=== PATIENT | male | born 1945 | race Caucasian/White ===

== ENCOUNTER 2018-02-06 14:01 | Inpatient (IN) | payer OTHER ==
[2018-02-06] MEDS ORDERED: dilTIAZem HCL 50 MG/10 ML - 10 ML VIAL ONE (14:13)
[2018-02-06] MEDS ORDERED: dilTIAZem HCL 30 MG TABLET (FP) ONE (14:18)
--- NOTE | 2018-02-06 14:23 | PDOC ---
History of Present Illness - General Chief Complaint: Chest Pain Stated Complaint: CHEST PAIN Time Seen by Provider: 02/06/18 14:23 - History of Present Illness Initial Comments: 02/06/18 14:36 The patient is a 72 year old male with a history of HTN, DM, who presents for evaluation of chest pain. The patient states that he began experiencing a sensation of a racing heart with associated chest pain with radiation to his left arm earlier this morning. The symptoms persisted prompting his presentation to the ED for further evaluation. He also reports some associated SOB. He denies a cardiac history and otherwise denies fevers, chills, nausea, vomiting, abdominal pain, or changes with urination or bowel movements. Past History - Past Medical History Allergies/Adverse Reactions: Allergies Allergy/AdvReac Type Severity Reaction Status Date / Time No Known Allergies Allergy Verified 02/06/18 14:08 Home Medications: Ambulatory Orders Enalapril Maleate 20 mg PO DAILY #0 01/07/15 Fenofibrate 160 mg PO DAILY #0 01/07/15 Glimepiride 2 mg PO BIDAC #0 01/07/15 Metformin HCl 500 mg PO BIDAC #0 01/07/15 Simvastatin 10 mg PO DAILY #0 tablet 01/07/15 Aspirin 81 mg PO DAILY 02/06/18 B12/Iodin/Mag/Zinc/Stacey/[id number] [Adrenoid Capsule] 1 each PO Q48H 02/06/18 Cholecalciferol (Vitamin D3) [D3-50] 50 mcg PO DAILY 02/06/18 Multivit-Min/FA/Lycopen/Lutein [Centrum Silver Tablet] 1 each PO DAILY 02/06/18 Cancer: Yes (Colon tumors) COPD: No Diabetes: Yes GI Disorders: Yes (to have surg.on colon) HTN: Yes - Suicide/Smoking/Psychosocial Hx Smoking History: Former smoker Have you smoked in the past 12 months: Yes Cigars Per Day: 1 Information on smoking cessation initiated: No 'Breaking Loose' booklet given: 01/01/15 Hx Alcohol Use: No Drug/Substance Use Hx: No Substance Use Type: None Hx Substance Use Treatment: No Review of Systems - Review of Systems Comments:: 02/06/18 14:43 Constitutional: No fevers, chills, fatigue, malaise HEENT: No Rhinorrhea, nasal congestion, visual changes Cardiovascular: Chest pain. No syncope, palpitations, lightheadedness Respiratory: SOB. No Cough, Hemoptysis, Gastrointestinal: No Abdominal pain, Nausea, Vomiting, Constipation, Diarrhea, Melena Genitourinary: No Dysuria, Frequency, Urgency, Hesitancy, Hematuria, Flank pain Musculoskeletal: No Myalgia, arthralgia Skin: No rashes, itching, bruising, pallor Neurologic: No Headache, Dizziness, Numbness, Weakness, or Tingling Psychiatric: No Hallucinations. No SI or HI *Physical Exam - Vital Signs Last Vital Signs Temp Pulse Resp BP Pulse Ox 224 H 20 0/0 L 02/06/18 14:05 02/06/18 14:05 02/06/18 14:05 - Physical Exam Comments: 02/06/18 15:05 General Appearance: Nourished. Diaphoretic. No Apparent Distress HEENT: No Pharyngeal Erythema, Tonsillar Exudate, Tonsillar Erythema Neck: No Cervical Lymphadenopathy Respiratory/Chest: Lungs Clear, Normal Breath Sounds. No Crackles, Rales, Rhonchi, Wheezing Cardiovascular: Regular Rhythm, Tachycardic. No Murmur, Gallops, Rubs Gastrointestinal/Abdominal: Normal Bowel Sounds, Soft. No Guarding, Rebound, Tenderness Musculoskeletal: No CVA Tenderness Extremity: Normal Capillary Refill Integumentary: Normal Color, Dry, Warm Neurologic: Fully Oriented, Alert, Normal Mood/Affect, Normal Response, Heart Score/ECG Review #1 ECG reviewed & interpreted by me at: 15:08 General ECG Interpretation: Normal Intervals, No acute ischemic changes 02/06/18 15:08 Narrow Complex Tachycardia Regular Rhythm Right Bundle Branch Block HR 224 #2 ECG reviewed & interpreted by me at: 15:20 General ECG Interpretation: Sinus Rhythm, Normal Intervals, No acute ischemic changes 02/06/18 15:[address] and T wave findings HR of 114 ED Treatment Course - LABORATORY CBC & Chemistry Diagram: 02/06/18 14:26 02/06/18 14:26 Medical Decision Making - Critical Care Time Total Critical Care Time (minutes): 45 Critical Care Statement: The care of this patient involved high complexity decision making to prevent further life threatening deterioration of the patient 's condition and/or to evaluate & treat vital organ system(s) failure or risk of failure. - Medical Decision Making 02/06/18 15:12 The patient is a 72 year old male with a history of HTN, DM, who presents for evaluation of chest pain. The patient's HR was 224 on arrival to the ED with a stable blood pressure. He received 20mg of iv diltiazem and 30 mg of PO Diltiazem with his HR improving to 110 with improvement in his symptoms. We discussed the case with cardiology who recommended continuing diltiazem and they will evaluate the patient. We will obtain a cbc, cmp, troponin, tsh, ua, chest plain film ekg to evaluate further. The patient will require admission for further management. 02/06/18 15:31 CBC demonstrates an elevated wbc to 12. CMP demonstrates a creatinine of 2.1 consistent with an LUCERO. Troponin is elevated to 0.10. Chest plain film is unremarkable. We discussed the case with Dr. Michelle who accepted the patient for admission. We will continue to hydrate the patient and monitor and reassess while here in the ED. *DC/Admit/Observation/Transfer Diagnosis at time of Disposition: Tachycardia, LUCERO (acute kidney injury) Chest pain Qualifiers: Chest pain type: unspecified Qualified Code(s): R07.9 - Chest pain, unspecified - Discharge Dispostion Condition at time of disposition: Stable Decision to Admit order: Yes - Referrals - Patient Instructions - Post Discharge Activity
[2018-02-06] MEDS ORDERED: dilTIAZem HCL 50 MG/10 ML - 10 ML VIAL IVPUSH ONE (14:24)
--- NOTE | 2018-02-06 14:28 | PDOC ---
Attending Attestation - Resident Resident Name: Gilberto Owusu - HPI HPI: 02/06/18 15:53 Pt presents to the ED complaining of the acute onset of palpitations and lightheadness that began acutely immediately prior to admission. On admission, patient was tachycardic to 224 and experiencing substernal chest pain radiating down his left arm. Denies shortness of breath. Denies prior similar episodes. Denies fever, bleeding, nausea or vomiting. - Physicial Exam PE: 02/06/18 16:40 Agree with resident exam. Patient is alert and oriented and in no acute distress. Lungs are clear. Abdomen is soft, non tender and non distended. - Critical Care Time Total Critical Care Time: 30 Critical Care Statement: The care of this patient involved high complexity decision making to prevent further life threatening deterioration of the patient 's condition and/or to evaluate & treat vital organ system(s) failure or risk of failure. - Medical Decision Making 02/06/18 16:43 Pt presents to the ED with severe tachycardia. Patient presented with an extremely tachycardic, regular, narrow complex rhythm and concerning symptoms for ischemia. Improved after IV cardizem. Labs show elevated Cr, which may be at patient's baseline. Case discussed with cardiology, who recommends continuing cardizem. Given concern for A fib and patient's signs of ischemia, will start on heparin drip for anticoagulation. Will check dopplers and admit to medicine.
[2018-02-06 14:32] LABS: BASO % 0.6 % (0-2.0); EOS % 0.8 % (0-4.5); HEMATOCRIT 43.8 % (35.4-49); HEMOGLOBIN 13.9 GM/dL (11.7-16.9); LYMPH % 19.2 % (8-40); MCH 28.8 pg (25.7-33.7); MCHC 31.7 g/dl (32.0-35.9); MEAN CELL VOLUME 90.8 fl (80-96); MEAN PLT VOLUME 9.7 fl (7.5-11.1); MONO % 4.3 % (3.8-10.2); NEUT % 75.1 % (42.8-82.8); PLATELET COUNT 167 K/MM3 (134-434); RBC 4.82 M/mm3 (4.00-5.60); RDW 13.6 % (11.9-15.9); WHITE BLOOD COUNT 12.7 K/mm3 (4.0-10.0)
[2018-02-06 14:53] LABS: INR 0.89 (0.83-1.09); PROTHROMBIN TIME (PATIENT) 10.5 SEC (9.7-13.0)
[2018-02-06 14:55] LABS: ACTIVATED PTT 28.8 SECONDS (25.2-36.5)
[2018-02-06 15:08] LABS: ALBUMIN 4.2 g/dl (3.4-5.0); ALK PHOS 41 U/L (45-117); ANION GAP 9 MMOL/L (8-16); BILIRUBIN,TOTAL 0.5 mg/dL (0.2-1); BLOOD UREA NITROGEN 30 mg/dL (7-18); CHLORIDE 105 mmol/L (98-107); CO2 23 mmol/L (21-32); CREATININE 2.1 mg/dL (0.55-1.3); N-TERMINAL BNP 372.8 pg/ml (5-125); POTASSIUM 5.1 mmol/L (3.5-5.1); SGOT/AST 18 U/L (15-37); SGPT/ALT 30 U/L (13-61); SODIUM 136 mmol/L (136-145); TOT PROT 7.7 g/dl (6.4-8.2)
[2018-02-06] MEDS ORDERED: dilTIAZem HCL 30 MG TABLET (FP) PO ONE (15:13)
[2018-02-06] MEDS ORDERED: SODIUM CHLORIDE 1,000 ML IV STA (15:13)
[2018-02-06 15:18] LABS: GLUCOSE,RANDOM 353 mg/dL (74-106)
--- NOTE | 2018-02-06 15:31 | HP ---
Admitting History and Physical - Primary Care Physician PCP: Joseph Raygoza - Admission Chief Complaint: Chest Pain and Palpitation History of Present Illness: 72 yrs old man known case of HTN, T2DM, CKD unknown Base line, Dyslipedemia CA Colon s/p resection in 2014 last colonoscopy 1 yr ago was reported normal, excellent ET denies any PND or orthopnea no excertional chest pain or SOB today present with c/o Left sided chest discomfort that radiates to Left UE low intensity pressure like not associated with perspiration, dizziness , noticed some chest palpitation, denies any fever, chills, cough or SOB , on arrival to Ed patient was in tachycardaia HR around 200 recived Dilitizem Push slowed down to 90-120s Cardiology consulted recommended Diltizem PO at the time of examination, comfortable HR 110-120s , Saturating well denies any chest discomfort History Source: Patient, Family Member - Past Medical History Cardiovascular: Yes: HTN, Hyperlipdemia Renal/: Yes: Renal Failure Heme/Onc: Yes: Other (Ca colon) Endocrine: Yes: Diabetes Mellitus - Past Surgical History Additional Past Surgical History: Colon resection - Smoking History Smoking history: Former smoker Have you smoked in the past 12 months: Yes - Alcohol/Substance Use Hx Alcohol Use: No - Social History History of Recent Travel: No Home Medications - Allergies Allergies/Adverse Reactions: Allergies Allergy/AdvReac Type Severity Reaction Status Date / Time No Known Allergies Allergy Verified 02/06/18 14:08 - Home Medications Home Medications: Ambulatory Orders Enalapril Maleate 20 mg PO DAILY #0 01/07/15 Fenofibrate 160 mg PO DAILY #0 01/07/15 Glimepiride 2 mg PO BIDAC #0 01/07/15 Metformin HCl 500 mg PO BIDAC #0 01/07/15 Simvastatin 10 mg PO DAILY #0 tablet 01/07/15 Aspirin 81 mg PO DAILY 02/06/18 B12/Iodin/Mag/Zinc/Stacey/[id number] [Adrenoid Capsule] 1 each PO Q48H 02/06/18 Cholecalciferol (Vitamin D3) [D3-50] 50 mcg PO DAILY 02/06/18 Multivit-Min/FA/Lycopen/Lutein [Centrum Silver Tablet] 1 each PO DAILY 02/06/18 Family Disease History - Family Disease History Family Disease History: Heart Disease: Father (CAD, CHF), Brother (CAD stent) Review of Systems - Review of Systems Constitutional: denies: Chills, Diaphoresis, Fever, Lethargy, Malaise, Night Sweats Eyes: denies: Blind Spots, Blurred Vision, Double Vision HENT: denies: Difficult Swallowing, Ear Discharge, Ear Pain Neck: denies: Decreased ROM, Lumps, Pain on Movement Cardiovascular: reports: Chest Pain, Palpitations. denies: Edema, Shortness of Breath Respiratory: denies: Cough, Exercise Intolerance, Hemoptysis, Orthopnea Gastrointestinal: denies: Abdominal Pain, Constipation, Diarrhea Genitourinary: denies: Burning, Discharge, Dysuria Musculoskeletal: denies: Back Pain, Crepitus, Decreased ROM Integumentary: denies: Blister, Bruising, Change in Color Neurological: denies: Change in LOC, Change in Speech, Confusion Endocrine: denies: Excessive Sweating, Flushing, Increased Hunger Hematology/Lymphatic: denies: Easily Bruised, Excessive Bleeding, Swollen Glands Pain Intensity: 0 Physical Examination Vital Signs: Vital Signs Temperature Pulse Rate 115 H 02/06/18 14:25 Respiratory Rate 20 02/06/18 14:25 Blood Pressure 115/105 H 02/06/18 14:25 O2 Sat by Pulse Oximetry (%) 98 02/06/18 14:25 Elderly man not in distress HEENT: Mm moist, no anemia NECK: No JVD No Bruit CHEST: CTA B/L CVS: S1S2 Irr No m/g/r ABD: Obese non tender Bs + EXT: Trace edema feet, no calf tenderness, Pulses + 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[employer] DRIVER: AOX3 non focal Labs: CBC, BMP 02/06/18 14:26 02/06/18 14:26 CBC,CMP WBC 12.7 K/mm3 (4.0-10.0) H 02/06/18 14:26 RBC 4.82 M/mm3 (4.00-5.60) 02/06/18 14:26 Hgb 13.9 GM/dL (11.7-16.9) 02/06/18 14:26 Hct 43.8 % (35.4-49) D 02/06/18 14:26 MCV 90.8 fl (80-96) 02/06/18 14:26 MCH 28.8 pg (25.7-33.7) 02/06/18 14:26 MCHC 31.7 g/dl (32.0-35.9) L 02/06/18 14:26 RDW 13.6 % (11.9-15.9) 02/06/18 14:26 Plt Count 167 K/MM3 (134-434) 02/06/18 14:26 MPV 9.7 fl (7.5-11.1) 02/06/18 14:26 Absolute Neuts (auto) 9.6 K/mm3 (1.5-8.0) H 02/06/18 14:26 Neutrophils % 75.1 % (42.8-82.8) 02/06/18 14:26 Lymphocytes % 19.2 % (8-40) 02/06/18 14:26 Monocytes % 4.3 % (3.8-10.2) 02/06/18 14:26 Eosinophils % 0.8 % (0-4.5) D 02/06/18 14:26 Basophils % 0.6 % (0-2.0) 02/06/18 14:26 Nucleated RBC % 0 % (0-0) 02/06/18 14:26 Sodium 136 mmol/L (136-145) 02/06/18 14:26 Potassium 5.1 mmol/L (3.5-5.1) 02/06/18 14:26 Chloride 105 mmol/L (98-107) 02/06/18 14:26 Carbon Dioxide 23 mmol/L (21-32) 02/06/18 14:26 Anion Gap 9 MMOL/L (8-16) 02/06/18 14:26 BUN 30 mg/dL (7-18) H 02/06/18 14:26 Creatinine 2.1 mg/dL (0.55-1.3) H 02/06/18 14:26 Creat Clearance w eGFR 31.11 (>60) 02/06/18 14:26 Random Glucose 353 mg/dL (74-106) H* 02/06/18 14:26 Calcium 10.0 mg/dL (8.5-10.1) 02/06/18 14:26 Total Bilirubin 0.5 mg/dL (0.2-1) 02/06/18 14:26 AST 18 U/L (15-37) 02/06/18 14:26 ALT 30 U/L (13-61) 02/06/18 14:26 Alkaline Phosphatase 41 U/L (45-117) L 02/06/18 14:26 Creatine Kinase 175 IU/L (26-308) 02/06/18 14:26 Troponin I 0.10 ng/ml (0.00-0.05) H 02/06/18 14:26 B-Natriuretic Peptide 372.8 pg/ml (5-125) H 02/06/18 14:26 Total Protein 7.7 g/dl (6.4-8.2) 02/06/18 14:26 Albumin 4.2 g/dl (3.4-5.0) 02/06/18 14:26 TSH 1.70 uIU/ml (0.358-3.74) D 02/06/18 14:26 Imaging - Results Chest X-ray: Report Reviewed (No Infiltrates) EKG: Report Reviewed (Ist: HR 200 narrow complex either SVT or A flutter 2nd HR 114 ? A Fib /MAT) Problem List - Problems (1) Chest pain Assessment/Plan: Most likely due to rapid HR with some indeterminate atrial arrhythmia in, will F /U serial CE, ECHO, telemonitoring, cont statin, serial EKG Cardiology consulted recommended PO Diltizem will F/U Clinical course Code(s): R07.9 - CHEST PAIN, UNSPECIFIED Qualifiers: Chest pain type: unspecified Qualified Code(s): R07.9 - Chest pain, unspecified (2) Tachycardia Assessment/Plan: Intial strip shows narrow complex tachycardia with VR around 200 unlikely sinus, possibility of SVT/A Flutter, 2nd EKG after Diltiazem push HR 114 Afib ? or MAT considering old age and High [id number] score 3 will start AC with Heparin till final determination of rhythm by Cardiology F/U LE Doppler to R/O DVT Code(s): R00.0 - TACHYCARDIA, UNSPECIFIED (3) LUCERO (acute kidney injury) Assessment/Plan: Patient has CKD no recent base line GFR available , will Hold Enarlapril F/U PMD and BMP in am. Code(s): N17.9 - ACUTE KIDNEY FAILURE, UNSPECIFIED (4) HTN (hypertension) Assessment/Plan: Well controlled Hold Enarlapril will optimize accordingly Code(s): I10 - ESSENTIAL (PRIMARY) HYPERTENSION (5) T2DM (type 2 diabetes mellitus) Assessment/Plan: On PO Meds will Hold Correction dose insulin, Diabetic Diet F/U HBA1C, Lipid and TSH Code(s): E11.9 - TYPE 2 DIABETES MELLITUS WITHOUT COMPLICATIONS (6) Dyslipidemia Assessment/Plan: Cont Statin and Fenofibrate Code(s): E78.5 - HYPERLIPIDEMIA, UNSPECIFIED (7) Elevated troponin Assessment/Plan: Mildly elevated trop I moat likely demand ischemia will add ASA 81 mg , now rate controlled cont Diltizem 30 mg q 8 hrly as recommended by cardiology, cont statin, serial trop, EKG and ECHO. Code(s): R74.8 - ABNORMAL LEVELS OF OTHER SERUM ENZYMES
[2018-02-06] MEDS ORDERED: HEPARIN NA (PORCINE) 5,000 UNITS/ML 1ML VIAL IVPUSH PRN (15:59)
[2018-02-06] MEDS ORDERED: HEPARIN INFUSION - 25,000 UNITS/500 ML INFUS.BAG IVPB ONE (16:05)
[2018-02-06] MEDS: HEPARIN - 25,000 UNIT in SODIUM CHLORIDE 495 ML IV SCH (16:14)
[2018-02-06] MEDS ORDERED: GLIMEPIRIDE 2 MG PO SCH (16:30)
[2018-02-06] MEDS: INSULIN SLIDING SCALE (NOVOLOG) 1 VIAL SQ SCH (17:39)
[2018-02-06] MEDS ORDERED: INSULIN (NOVOLOG) ASPART 100 UNITS/ML 10ML VIAL ONE (17:42)
[2018-02-06 20:03] VITALS: BMI 32.7
[2018-02-06 21:04] LABS: MAGNESIUM 1.6 mg/dL (1.8-2.4)
[2018-02-06] MEDS ORDERED: MAGNESIUM SULF 50% (8.12 MEQ/2 ML-1 GM VIAL) IVPB ONE (21:45)
[2018-02-06] MEDS: dilTIAZem HCL 30 MG TABLET (FP) PO SCH (21:50)
[2018-02-06] MEDS ORDERED: ATORVASTATIN CA 10 MG TABLET (FP) PO SCH (22:00)
[2018-02-06 22:46] LABS: URINE APPEARANCE CLEAR; URINE BILIRUBIN NEGATIVE (<2.0 mg/dL); URINE COLOR LTYELLOW; URINE GLUCOSE (UA) 3+ (NEGATIVE); URINE KETONE TRACE (NEGATIVE); URINE LEUK ESTERASE NEGATIVE (NEGATIVE); URINE NITRITE NEGATIVE (NEGATIVE); URINE PROTEIN NEGATIVE (NEGATIVE); URINE UROBILINOGEN NEGATIVE mg/dL (0.2-1.0)
[2018-02-06] MEDS ORDERED: CLOPIDOGREL BISULFATE 300 MG TABLET PO ONE (23:45)
[2018-02-07] MEDS: METOPROLOL TARTRATE 25 MG TABLET (FP) PO SCH ×3 (00:23→21:06)
[2018-02-07] MEDS: dilTIAZem HCL 30 MG TABLET (FP) PO SCH ×3 (05:22→21:06)
[2018-02-07] MEDS: INSULIN SLIDING SCALE (NOVOLOG) 1 VIAL SQ SCH ×3 (06:09→17:25)
[2018-02-07] MEDS: GLIMEPIRIDE 2 MG TABLET (FP) PO SCH ×2 (06:09→17:24)
[2018-02-07 07:02] LABS: BASO % 0.5 % (0-2.0); HEMATOCRIT 38.5 % (35.4-49); HEMOGLOBIN 12.3 GM/dL (11.7-16.9); LYMPH % 40.4 % (8-40); MCH 28.9 pg (25.7-33.7); MEAN CELL VOLUME 90.3 fl (80-96); MEAN PLT VOLUME 9.7 fl (7.5-11.1); MONO % 7.1 % (3.8-10.2); PLATELET COUNT 138 K/MM3 (134-434); RBC 4.27 M/mm3 (4.00-5.60); RDW 13.7 % (11.9-15.9); WHITE BLOOD COUNT 9.7 K/mm3 (4.0-10.0)
[2018-02-07 08:19] LABS: ALBUMIN 3.4 g/dl (3.4-5.0); ALK PHOS 27 U/L (45-117); ANION GAP 8 MMOL/L (8-16); BILIRUBIN,TOTAL 0.6 mg/dL (0.2-1); BLOOD UREA NITROGEN 23 mg/dL (7-18); CALCIUM 8.9 mg/dL (8.5-10.1); CHLORIDE 110 mmol/L (98-107); CO2 24 mmol/L (21-32); CREATININE 1.4 mg/dL (0.55-1.3); GLUCOSE,RANDOM 82 mg/dL (74-106); POTASSIUM 4.7 mmol/L (3.5-5.1); SGOT/AST 36 U/L (15-37); SGPT/ALT 26 U/L (13-61); SODIUM 142 mmol/L (136-145); TOT PROT 6.2 g/dl (6.4-8.2)
[2018-02-07] MEDS: FENOFIBRIC ACID 135 MG CAP PO SCH (09:08)
[2018-02-07] MEDS: HEPARIN NA (PORCINE) 5,000 UNITS/ML 1ML VIAL IVPUSH PRN ×2 (09:11→16:00)
[2018-02-07] MEDS: HEPARIN - 25,000 UNIT in SODIUM CHLORIDE 495 ML IV SCH ×2 (09:12→16:00)
--- NOTE | 2018-02-07 09:46 | CON.CARD ---
Consult Consult Specialty:: cardio - History of Present Illness Chief Complaint: cp History of Present Illness: 72 M here with palpiations/chest pain. out for his usual 5 mile walk on [place], about 2 miles in felt severe sternal CP assctd with heart racing. both sx's began approx the same time. returned home, and sat and rested--began to feel L arm numb, called 911. never experienced this before. HR was 224 on arrival to the ED with a stable blood pressure. He received 20mg of iv diltiazem and 30 mg of PO Diltiazem with his HR improving to 110 with improvement in his symptoms. PMH: DM, HTN, HPL. - Past Medical History Cardio/Vascular: Yes: HTN, Hyperlipdemia Renal/: Yes: Renal Failure Endocrine: Yes: Diabetes Mellitus - Alcohol/Substance Use Hx Alcohol Use: No - Smoking History Smoking history: Former smoker Have you smoked in the past 12 months: Yes - Social History History of Recent Travel: No Home Medications - Allergies Allergies/Adverse Reactions: Allergies Allergy/AdvReac Type Severity Reaction Status Date / Time No Known Allergies Allergy Verified 02/06/18 14:08 - Home Medications Home Medications: Ambulatory Orders Enalapril Maleate 20 mg PO DAILY #0 01/07/15 Fenofibrate 160 mg PO DAILY #0 01/07/15 Glimepiride 2 mg PO BIDAC #0 01/07/15 Metformin HCl 500 mg PO BIDAC #0 01/07/15 Simvastatin 10 mg PO DAILY #0 tablet 01/07/15 Aspirin 81 mg PO DAILY 02/06/18 B12/Iodin/Mag/Zinc/Stacey/[id number] [Adrenoid Capsule] 1 each PO Q48H 02/06/18 Cholecalciferol (Vitamin D3) [D3-50] 50 mcg PO DAILY 02/06/18 Multivit-Min/FA/Lycopen/Lutein [Centrum Silver Tablet] 1 each PO DAILY 02/06/18 Family Disease History - Family Disease History Family Disease History: Heart Disease: Father (CAD, CHF), Brother (CAD stent) Review of Systems - Review of Systems Constitutional: denies: Chills, Fever Eyes: denies: Eye Pain HENT: denies: Nasal Congestion Neck: denies: Stiffness Cardiovascular: reports: Palpitations. denies: Edema Respiratory: denies: Orthopnea, PND Gastrointestinal: denies: Diarrhea, Rectal Bleeding Genitourinary: denies: Burning, Hematuria Musculoskeletal: denies: Muscle Pain Integumentary: denies: Rash Neurological: denies: Numbness, Seizure, Syncope Endocrine: denies: Excessive Sweating Hematology/Lymphatic: denies: Excessive Bleeding Vital Signs: Vital Signs Temperature 98.2 F 02/07/18 08:51 Pulse Rate 88 02/07/18 08:51 Respiratory Rate 18 02/07/18 08:51 Blood Pressure 122/87 02/07/18 08:51 O2 Sat by Pulse Oximetry (%) 97 02/06/18 21:00 Constitutional: Yes: Well Nourished, No Distress Eyes: No: Sclera Icterus HENT: No: Nasal Congestion Neck: No: Decreased ROM Respiratory: Yes: CTA Bilaterally. No: Accessory Muscle Use Gastrointestinal: Yes: Normal Bowel Sounds. No: Distention, Hepatomegaly, Palpable Mass, Tenderness Cardiovascular: Yes: Regular Rate and Rhythm JVD: No Carotid Bruit: No PMI: Non-Displaced Heart Sounds: Yes: S1, S2. No: Gallop Murmur: No: Systolic Murmur, Diastolic Murmur Musculoskeletal: Yes: Other (No kyphosis) Extremities: No: Cool, Cyanosis Edema: No Peripheral Pulses: 2+ Left Carotid, 2+ Right Carotid, 2+ Left Doralis Pedis, 2+ Right Dorsalis Pedis Integumentary: No: Jaundice Neurological: Yes: Alert, Oriented (x3) Psychiatric: No: Agitated - Other Data Labs, Other Data: CBC, BMP 02/07/18 05:30 02/07/18 05:30 INR, PTT INR 0.89 (0.83-1.09) 02/06/18 14:26 Troponin, BNP 02/06/18 02/06/18 02/07/18 14:26 21:00 05:30 Troponin I 0.10 H 5.73 H* 5.24 H* B-Natriuretic Peptide 372.8 H 02/07/18 05:30 Troponin I Cancelled B-Natriuretic Peptide Troponin, BNP 02/06/18 02/06/18 02/07/18 14:26 21:00 05:30 Troponin I 0.10 H 5.73 H* 5.24 H* B-Natriuretic Peptide 372.8 H 02/07/18 05:30 Troponin I Cancelled B-Natriuretic Peptide Laboratory Tests 02/06/18 02/06/18 02/06/18 14:26 14:26 21:00 WBC Hgb Plt Count Sodium Potassium Carbon Dioxide BUN Creatinine 2.1 H Creat Clearance w eGFR Hemoglobin A1c % AST ALT Troponin I 0.10 H 5.73 H* Triglycerides 202 H Cholesterol 166 Total LDL Cholesterol 106 H HDL Cholesterol 43 TSH 1.70 D 02/07/18 02/07/18 02/07/18 05:30 05:30 05:30 WBC 9.7 Hgb 12.3 Plt Count 138 Sodium 142 Potassium 4.7 Carbon Dioxide 24 BUN 23 H Creatinine 1.4 H Creat Clearance w eGFR 49.68 Hemoglobin A1c % 7.4 H AST 36 ALT 26 Troponin I 5.24 H* Triglycerides Cholesterol Total LDL Cholesterol HDL Cholesterol TSH Assessment/Plan ECG 02/06 (14:02): SVT with HR 224. deep ST depressions lateral leads c/w ischemia ECG 02/06 (14:15): atrial flutter, ST depressions lateral leads possibly ischemia ECG (02/07 3:45 am): atrial flutter, HR controlled. ? old septal MA. no ST-T abn. PVC CXR: clear lungs/pleura. large heart tele: aflutter, HR well controlled NSTEMI: -trop 0.13-->5.0 -? demand sec to rapid tachyarrhythmia -sx's on presentation potentially c/w ACS, vs primary tachycarrhythmia event. marked ischemic ECG changes at that time, in setting of HR >200. -recommend cath for risk stratification of severe underlying dz--d/w'd interventional (aditi): to be done tomorrow to give creatinine another day to improve. -aspirin, plavix (s/p 600mg load 02/06). -UFH as doing -continue bb, hi intensity statin (atorva 80) -heparin (UFH) -echo for LVEF tachyarrhythmia, atrial flutter: -initial ecg underlying atria activity difficult to tease out. QRS appears narrow (despite computer measurement) and similar to baseline morphology-- suspect SVT not VT. -currently in flutter with controlled HR. -cont heparin as doing -continue BB, dilt (if EF low, will stop diltiazem) -tele monitoring LUCERO: -initial creat 02/06 > 2.0, improved to 1.4 today. -trend labs DM: -A1c 7s here
[2018-02-07] MEDS ORDERED: ENALAPRIL MALEATE 20 MG PO SCH (10:00)
[2018-02-07] MEDS ORDERED: PATIENT'S OWN MEDICATION (NON-FORMULARY) (Simvastatin [Simvastatin] 10 MG) PO SCH (10:00)
--- NOTE | 2018-02-07 10:14 | EKG ---
Test Reason : Blood Pressure : / mmHG Vent. Rate : 090 BPM Atrial Rate : 085 BPM P-R Int : 000 ms QRS Dur : 092 ms QT Int : 374 ms P-R-T Axes : 000 -27 045 degrees QTc Int : 457 ms ATRIAL FIBRILLATION WITH PREMATURE VENTRICULAR OR ABERRANTLY CONDUCTED COMPLEXES ABNORMAL ECG WHEN COMPARED WITH ECG OF 07-FEB-2018 03:45, NO SIGNIFICANT CHANGE WAS FOUND Confirmed by HEATHER SEPULVEDA MD ([id number]) on 02/07/2018 10:13:49 AM Referred By: Edilberto YOUNGBLOOD Confirmed By:HEATHER SEPULVEDA MD
--- NOTE | 2018-02-07 10:27 | EKG ---
Test Reason : Blood Pressure : / mmHG Vent. Rate : 224 BPM Atrial Rate : 220 BPM P-R Int : 000 ms QRS Dur : 194 ms QT Int : 192 ms P-R-T Axes : 000 -35 000 degrees QTc Int : 370 ms SVT VS RAPID ATRIAL FLUTTER WITH RVR LEFT AXIS DEVIATION ABNORMAL ECG NO PREVIOUS ECGS AVAILABLE Confirmed by COCO WALLACE, HEATHER ([id number]) on 02/07/2018 10:27:29 AM Referred By: Confirmed By:HEATHER SEPULVEDA MD
--- NOTE | 2018-02-07 10:27 | EKG ---
Test Reason : Blood Pressure : / mmHG Vent. Rate : 114 BPM Atrial Rate : 114 BPM P-R Int : 000 ms QRS Dur : 092 ms QT Int : 302 ms P-R-T Axes : 000 -26 027 degrees QTc Int : 416 ms SINUS TACHYCARDIA WITH 1ST DEGREE A-V BLOCK WITH FREQUENT PREMATURE VENTRICULAR COMPLEXES NONSPECIFIC ST AND T WAVE ABNORMALITY ABNORMAL ECG WHEN COMPARED WITH ECG OF 06-FEB-2018 14:02, SINUS RHYTHM HAS REPLACED WIDE QRS TACHYCARDIA VENT. RATE HAS DECREASED BY 110 BPM Confirmed by HEATHER SEPULVEDA MD ([id number]) on 02/07/2018 10:26:53 AM Referred By: Confirmed By:HEATHER SEPULVEDA MD
--- NOTE | 2018-02-07 13:14 | PN ---
Progress Note, Physician Chief Complaint: Pt sitting in bed in no acute distress. He reports he usually walks 4 miles everyday, pt went for a walk yesterday morning, felt chest heaviness during, he returned home, and developed Left arm numbness which prompted him to come to ED. He reports symptoms resolved now. Denies any chest pain, sob, n/v, unilateral weakness/numbness - Current Medication List Current Medications: Active Medications Aspirin (Ecotrin -) 81 mg PO DAILY [facility] Atorvastatin Calcium (Lipitor -) 80 mg PO HS [facility] Clopidogrel Bisulfate (Plavix -) 75 mg PO DAILY [facility] Diltiazem HCl (Cardizem -) 30 mg PO TID [facility] Last Admin: 02/07/18 05:22 Dose: 30 mg Fenofibric Acid (Trilipix -) 135 mg PO DAILY [facility] Last Admin: 02/07/18 09:08 Dose: 135 mg Glimepiride (Amaryl -) 2 mg PO BIDAC [facility] Last Admin: 02/07/18 06:09 Dose: Not Given Heparin Sodium (Porcine) (Heparin -) 1,000 unit IVPUSH PRN PRN PRN Reason: Heparin Last Admin: 02/07/18 09:11 Dose: 1,000 unit Heparin Sodium (Porcine) (Heparin -) 5,000 unit IVPUSH PRN PRN PRN Reason: Heparin Last Admin: 02/06/18 23:21 Dose: 5,000 unit Heparin Sodium (Porcine) 25, (000 unit/ Sodium Chloride) 500 mls @ 20 mls/hr IV TITR [facility]; Protocol Last Admin: 02/07/18 09:12 Dose: 1,250 unit/hr, 25 mls/hr Insulin Aspart (Novolog Vial Sliding Scale -) 1 vial SQ TIDAC [facility]; Protocol Last Admin: 02/07/18 12:31 Dose: Not Given Metoprolol Tartrate (Lopressor -) 12.5 mg PO BID [facility] Last Admin: 02/07/18 09:07 Dose: 12.5 mg - Objective Vital Signs: Vital Signs Temperature 98.2 F 02/07/18 08:51 Pulse Rate 88 02/07/18 08:51 Respiratory Rate 18 02/07/18 09:00 Blood Pressure 122/87 02/07/18 08:51 O2 Sat by Pulse Oximetry (%) 99 02/07/18 09:00 Constitutional: Yes: Well Nourished, No Distress, Calm Eyes: Yes: WNL HENT: Yes: Atraumatic Cardiovascular: Yes: Pulse Irregular Respiratory: Yes: WNL, Regular, CTA Bilaterally. No: Accessory Muscle Use, Rhonchi, SOB, Tachypnea, Wheezes Gastrointestinal: Yes: WNL, Normal Bowel Sounds, Soft, Abdomen, Obese. No: Distention, Tenderness Genitourinary: Yes: WNL Extremities: Yes: WNL Edema: No Neurological: Yes: WNL, Alert, Oriented. No: Aphasia, Facial Droop, Tingling, Tremors, Weakness Psychiatric: Yes: WNL, Alert, Oriented Labs: CBC, BMP 02/07/18 05:30 02/07/18 05:30 INR, PTT INR 0.89 (0.83-1.09) 02/06/18 14:26 Problem List - Problems (1) NSTEMI (non-ST elevated myocardial infarction) Assessment/Plan: troponin peaked, 0.10-5.7 pt currently asymptomatic at rest continue bb, asa, plavix, high dose statin heparin drip echo pending cardiology following plan for transfer to [facility] tomorrow for cath Code(s): I21.4 - NON-ST ELEVATION (NSTEMI) MYOCARDIAL INFARCTION (2) Tachyarrhythmia Assessment/Plan: improved, remains in aflutter continue bb,ccb heparin drip Code(s): R00.0 - TACHYCARDIA, UNSPECIFIED (3) Dyslipidemia Assessment/Plan: stable triglycerides 202, LDL 106 continue high dose statin, fibrate Code(s): E78.5 - HYPERLIPIDEMIA, UNSPECIFIED (4) HTN (hypertension) Assessment/Plan: controlled enalapril on hold Code(s): I10 - ESSENTIAL (PRIMARY) HYPERTENSION Qualifiers: Hypertension type: essential hypertension Qualified Code(s): I10 - Essential (primary) hypertension (5) T2DM (type 2 diabetes mellitus) Assessment/Plan: HgA1c 7.4 diabetic diet bgm, insulin sliding scale while inpt Hg goal <7 strict control post cath- continue metformin/amaryl Code(s): E11.9 - TYPE 2 DIABETES MELLITUS WITHOUT COMPLICATIONS Qualifiers: Diabetes mellitus detention insulin use: without detention use Diabetes mellitus complication status: with kidney complications Diabetes mellitus complication detail: with chronic kidney disease Chronic kidney disease stage : stage 3 (moderate) Qualified Code(s): E11.22 - Type 2 diabetes mellitus with diabetic chronic kidney disease; N18.3 - Chronic kidney disease, stage 3 ( moderate) (6) CKD (chronic kidney disease) Assessment/Plan: stable, at baseline outpt cr range 1.4-1.8 followed by Alesia outpt Code(s): N18.9 - CHRONIC KIDNEY DISEASE, UNSPECIFIED Qualifiers: Chronic kidney disease stage: stage 3 (moderate) Qualified Code(s): N18.3 - Chronic kidney disease, stage 3 (moderate) (7) Obesity (BMI 30.0-34.9) Assessment/Plan: continue life style modifications weight loss Code(s): E66.9 - OBESITY, UNSPECIFIED (8) History of colon cancer Assessment/Plan: s/p partial colon resection 02/09 surveillance colonoscopy due in 2018 Code(s): Z85.038 - PERSONAL HISTORY OF MALIGNANT NEOPLASM OF LARGE INTESTINE (9) Former tobacco use Assessment/Plan: quit in [address] chest neg for malignancy Code(s): Z87.891 - PERSONAL HISTORY OF NICOTINE DEPENDENCE
[2018-02-07] MEDS: CLOPIDOGREL BISULFATE 75 MG TABLET (FP) PO SCH (13:17)
[2018-02-07] MEDS: ASPIRIN COATED 81 MG TABLET.EC PO SCH (13:17)
--- NOTE | 2018-02-07 16:06 | ECHO ---
Name: KUN BENAVIDES Exam:Adult Echocardiogram Study Date: 02/07/2018 02:42 PM Age: 72 yrs Reason For Study: SYNCOPE Height: 68 in Weight: 203 lb BSA: 2.1 m2 MMode/2D Measurements & Calculations IVSd: 0.77 cm EDV(Teich): 103.6 ml LVIDd: 4.7 cm ESV(Teich): 40.8 ml LVIDs: 3.2 cm LVPWd: 0.76 cm Doppler Measurements & Calculations MV E max pippa: 73.5 cm/sec Ao V2 max: 108.0 cm/sec MV A max pippa: 50.3 cm/sec Ao max P.7 mmHg MV E/A: 1.5 MV dec time: 0.14 sec MR max pippa: 289.6 cm/sec Med Peak E' Pippa: 4.9 cm/sec MR max P.5 mmHg Med E/e': 15.1 Lat Peak E' Pippa: 10.5 cm/sec Lat E/e': 7.0 Procedure A complete two-dimensional transthoracic echocardiogram was performed (2D, M-mode, Doppler and color flow Doppler). Technically limited study. Left Ventricle The left ventricle is normal in size. Left ventricular systolic function is mildly reduced. Ejection Fraction = 45-50%. Diastolic dysfunction, Grade II (pseudonormalization pattern). TDI reveals elevated filling pressure (E/E' 15). There is mild apical wall hypokinesis. There is apical septal wall mild hypokinesis. Right Ventricle The right ventricle is normal size. The right ventricular systolic function is normal. Atria The left atrial size is normal. Right atrial size is normal. Mitral Valve The mitral valve is normal in structure and function. There is mild mitral regurgitation. Tricuspid Valve The tricuspid valve is not well visualized. Aortic Valve There is mild aortic sclerosis.;. No aortic regurgitation is present. Pulmonic Valve The pulmonic valve is not well visualized. Great Vessels The aortic root is normal size. Pericardium/Pleura There is no pericardial effusion. Interpretation Summary Technically limited study The left ventricle is normal in size. Left ventricular systolic function is mildly reduced. There is mild apical wall hypokinesis. There is apical septal wall mild hypokinesis. Ejection Fraction = 45-50%. Diastolic dysfunction, Grade II (pseudonormalization pattern). TDI reveals elevated filling pressure (E/E' 15) The right ventricular systolic function is normal. The left atrial size is normal. Right atrial size is normal. There is mild mitral regurgitation. There is mild aortic sclerosis. There is no pericardial effusion. Previous study is not available for comparison Sang H Elizabeth, MD 02/07/2018 04:06 PM
[2018-02-07] MEDS ORDERED: PT OWN MED DRAWER 7, Y5N ONE ×2 (17:45→17:46)
[2018-02-07] MEDS ORDERED: ATORVASTATIN CA 80 MG TABLET (FP) PO SCH (22:00)
[2018-02-08] MEDS: INSULIN SLIDING SCALE (NOVOLOG) 1 VIAL SQ SCH ×2 (06:12→12:00)
[2018-02-08] MEDS: GLIMEPIRIDE 2 MG TABLET (FP) PO SCH (06:12)
[2018-02-08] MEDS: dilTIAZem HCL 30 MG TABLET (FP) PO SCH (06:14)
[2018-02-08 07:01] LABS: BASO % 0.7 % (0-2.0); EOS % 5.3 % (0-4.5); HEMATOCRIT 38.5 % (35.4-49); HEMOGLOBIN 12.5 GM/dL (11.7-16.9); MCH 29.4 pg (25.7-33.7); MCHC 32.5 g/dl (32.0-35.9); MEAN CELL VOLUME 90.4 fl (80-96); MEAN PLT VOLUME 9.7 fl (7.5-11.1); MONO % 6.6 % (3.8-10.2); NEUT % 42.4 % (42.8-82.8); PLATELET COUNT 137 K/MM3 (134-434); RBC 4.26 M/mm3 (4.00-5.60); RDW 13.2 % (11.9-15.9); WHITE BLOOD COUNT 8.4 K/mm3 (4.0-10.0)
[2018-02-08 07:33] LABS: ALBUMIN 3.4 g/dl (3.4-5.0); ALK PHOS 27 U/L (45-117); ANION GAP 5 MMOL/L (8-16); BILIRUBIN,TOTAL 0.6 mg/dL (0.2-1); BLOOD UREA NITROGEN 19 mg/dL (7-18); CALCIUM 8.4 mg/dL (8.5-10.1); CHLORIDE 111 mmol/L (98-107); CO2 25 mmol/L (21-32); CREATININE 1.4 mg/dL (0.55-1.3); GLUCOSE,RANDOM 88 mg/dL (74-106); MAGNESIUM 1.7 mg/dL (1.8-2.4); POTASSIUM 4.4 mmol/L (3.5-5.1); SGOT/AST 21 U/L (15-37); SGPT/ALT 25 U/L (13-61); SODIUM 141 mmol/L (136-145); TOT PROT 6.2 g/dl (6.4-8.2)
[2018-02-08 08:20] VITALS: BP 130/81; PULSE 96; TEMP 98.6
[2018-02-08] MEDS ORDERED: MAGNESIUM SULF 50% (8.12 MEQ/2 ML-1 GM VIAL) IVPB ONE (10:00)
[2018-02-08] MEDS: ASPIRIN COATED 81 MG TABLET.EC PO SCH (10:18)
[2018-02-08] MEDS: METOPROLOL TARTRATE 25 MG TABLET (FP) PO SCH (10:18)
[2018-02-08] MEDS: CLOPIDOGREL BISULFATE 75 MG TABLET (FP) PO SCH (10:19)
[2018-02-08] MEDS: FENOFIBRIC ACID 135 MG CAP PO SCH (10:19)
[2018-02-08] MEDS: HEPARIN NA (PORCINE) 5,000 UNITS/ML 1ML VIAL IVPUSH PRN (10:25)
--- NOTE | 2018-02-08 11:18 | DS ---
Physical Examination Vital Signs: Vital Signs Temperature 98.6 F 02/08/18 08:19 Pulse Rate 96 H 02/08/18 08:19 Respiratory Rate 18 02/08/18 08:19 Blood Pressure 130/81 02/08/18 08:19 O2 Sat by Pulse Oximetry (%) 100 02/08/18 08:19 Constitutional: Yes: Well Nourished, No Distress, Calm Cardiovascular: Yes: WNL, Pulse Irregular Respiratory: Yes: WNL, Regular, CTA Bilaterally. No: Accessory Muscle Use, Bradypnea, SOB, Tachypnea, Wheezes Gastrointestinal: Yes: WNL, Normal Bowel Sounds, Soft, Abdomen, Obese. No: Distention, Tenderness Renal/: Yes: WNL Extremities: Yes: WNL Edema: No Neurological: Yes: WNL, Alert, Oriented. No: Numbness, Tingling, Tremors Psychiatric: Yes: WNL, Alert, Oriented Labs: CBC, BMP 02/08/18 05:30 02/08/18 05:30 Discharge Summary Reason For Visit: NSTEMI Current Active Problems LUCERO (acute kidney injury) (Acute) CKD (chronic kidney disease) (Acute) Chest pain (Acute) Dyslipidemia (Acute) Elevated troponin (Acute) Former tobacco use (Acute) HTN (hypertension) (Acute) History of colon cancer (Acute) NSTEMI (non-ST elevated myocardial infarction) (Acute) Obesity (BMI 30.0-34.9) (Acute) T2DM (type 2 diabetes mellitus) (Acute) Tachyarrhythmia (Acute) Tachycardia (Acute) Hospital Course: 72 year old male pmh htn,dm2, ckd, tobacco use came in with complaints of chest heaviness, lue numbness. Pt noted to be in aflutter, rate in 200s, improved w/ cardizem. LUCERO improved, pt currently at baseline. Pt started on heparin drip. Troponin peaked 0.1- 5.7. echo reveals midly reduced lvef. Symptoms resolved, hr controlled. Suspect demand ischemia however per cardiology, recommend cath for risk stratification of severe underlying dz, transfer to [facility] for cardiac cath. Cardiology consult appreciated Condition: Critical - Instructions Referrals: Joseph Raygoza MD [Staff Physician] - 1 Week Franco Mendez MD [Staff Physician] - 2 Weeks Disposition: TRANSFER ACUTE CARE/OTHER HOSP - Home Medications Comprehensive Discharge Medication List: Ambulatory Orders Enalapril Maleate 20 mg PO DAILY #0 01/07/15 Fenofibrate 160 mg PO DAILY #0 01/07/15 Glimepiride 2 mg PO BIDAC #0 01/07/15 Metformin HCl 500 mg PO BIDAC #0 01/07/15 Aspirin 81 mg PO DAILY 02/06/18 B12/Iodin/Mag/Zinc/Stacey/[id number] [Adrenoid Capsule] 1 each PO Q48H 02/06/18 Cholecalciferol (Vitamin D3) [D3-50] 50 mcg PO DAILY 02/06/18 Multivit-Min/FA/Lycopen/Lutein [Centrum Silver Tablet] 1 each PO DAILY 02/06/18 Atorvastatin Ca [Lipitor] 80 mg PO HS tablet 02/08/18 Clopidogrel Bisulfate [Plavix -] 75 mg PO DAILY tablet 02/08/18 Heparin - 1,000 unit IVPUSH PRN PRN vial 02/08/18 Heparin - 5,000 unit IVPUSH PRN PRN vial 02/08/18 Heparin - 25,000 unit IV TITR vial 02/08/18 Insulin Sliding Scale [Novolog Vial Sliding Scale -] 1 vial SQ TIDAC units Metoprolol Succinate 25 mg PO BID tablet 02/08/18
--- NOTE | 2018-02-08 11:28 | PN ---
Progress Note (short form) - Note Progress Note: s: no cp sob palps dizzy o: Vital Signs Period Temp Pulse Resp BP Sys/Narvaez Pulse Ox Last 24 Hr 98.3 F-98.9 F 80-96 18-18 103-130/68-81 98-100 Constitutional: Yes: Well Nourished, No Distress Eyes: No: Sclera Icterus Respiratory: Yes: CTA Bilaterally. No: Accessory Muscle Use Gastrointestinal: Yes: Normal Bowel Sounds. No: Distention, Hepatomegaly, Palpable Mass, Tenderness Cardiovascular: Yes: Regular Rate and Rhythm JVD: No Heart Sounds: Yes: S1, S2. No: Gallop Murmur: No: Systolic Murmur, Diastolic Murmur Extremities: No: Cool, Cyanosis Edema: No Integumentary: No: Jaundice Neurological: Yes: Alert, Oriented (x3) Psychiatric: No: Agitated Current Medications Generic Name Dose Route Start Last Admin Trade Name Freq PRN Reason Stop Dose Admin Aspirin 81 mg 02/07/18 11:15 02/08/18 10:18 Ecotrin - PO 81 mg DAILY [facility] Administration Atorvastatin Calcium 80 mg 02/07/18 22:00 02/07/18 21:06 Lipitor - PO 80 mg HS [facility] Administration Clopidogrel Bisulfate 75 mg 02/07/18 11:15 02/08/18 10:19 Plavix - PO 75 mg DAILY [facility] Administration Diltiazem HCl 30 mg 02/06/18 22:00 02/08/18 06:14 Cardizem - PO 30 mg TID [facility] Administration Fenofibric Acid 135 mg 02/07/18 10:00 02/08/18 10:19 Trilipix - PO 135 mg DAILY [facility] Administration Glimepiride 2 mg 02/07/18 07:00 02/08/18 06:12 Amaryl - PO Not Given BIDAC [facility] Heparin Sodium (Porcine) 1,000 unit 02/06/18 15:59 02/08/18 10:25 Heparin - IVPUSH 1,000 unit PRN PRN Administration Heparin Heparin Sodium (Porcine) 5,000 unit 02/06/18 15:59 02/06/18 23:21 Heparin - IVPUSH 5,000 unit PRN PRN Administration Heparin Heparin Sodium (Porcine) 25, 500 mls @ 20 mls/hr 02/06/18 16:00 02/08/18 10: 28 000 unit/ Sodium Chloride IV 1,450 unit/hr TITR [facility] 29 mls/hr Titration Protocol 1,000 UNIT/HR Insulin Aspart 1 vial 02/06/18 16:30 02/08/18 06:12 Novolog Vial Sliding Scale - SQ Not Given TIDAC [facility] Protocol Metoprolol Tartrate 12.5 mg 02/06/18 23:45 02/08/18 10:18 Lopressor - PO 12.5 mg BID [facility] Administration CBC, BMP 02/08/18 05:30 02/08/18 05:30 ECG 02/06 (14:02): SVT with HR 224. deep ST depressions lateral leads c/w ischemia ECG 02/06 (14:15): atrial flutter, ST depressions lateral leads possibly ischemia ECG (02/07 3:45 am): atrial flutter, HR controlled. ? old septal TX. no ST-T abn. PVC CXR: clear lungs/pleura. large heart tele: aflutter, HR well controlled echo 01/2018: lvef 45-50%, apical hk, nl rv, mild mr a/p: NSTEMI: -trop 0.13-->5.0 -? demand sec to rapid tachyarrhythmia -sx's on presentation potentially c/w ACS, vs primary tachycarrhythmia event. marked ischemic ECG changes at that time, in setting of HR >200. -recommend cath for risk stratification of severe underlying dz, transfer to [place] today -aspirin, plavix (s/p 600mg load 02/06). -UFH as doing -continue bb, hi intensity statin (atorva 80) -echo shows mild dec lvef, no signs vol overload. cont bb. tachyarrhythmia, atrial flutter: -initial ecg underlying atria activity difficult to tease out. QRS appears narrow (despite computer measurement) and similar to baseline morphology-- suspect SVT not VT. -currently in flutter with controlled HR. -cont heparin as doing -continue BB. lvef reduced so will dc dilt now. -tele monitoring LUCERO: -initial creat 02/06 > 2.0, improved
[2018-02-08] MEDS ORDERED: PT OWN MED DRAWER 7, Y5N ONE (14:30)
[2018-02-08] MEDS ORDERED: metoPROLOL SUCCINATE 25 MG TAB.SR.24H (FP) PO SCH (22:00)
== END 2018-02-08 14:47 | disposition short-term general hospital (02) | DRG 281 ==
LOC: JER 14:01 → JERBED 15:38 → J4W 19:37
PROVIDERS: ADMIT Internal Medicine; ATTEND Internal Medicine
DX: I21.4 Non-ST elevation (NSTEMI) myocardial infarction (principal); I48.92 Unspecified atrial flutter; N17.9 Acute kidney failure, unspecified; Z79.84 Long term (current) use of oral hypoglycemic drugs; E11.22 Type 2 diabetes mellitus with diabetic chronic kidney disease; I12.9 Hypertensive chronic kidney disease with stage 1 through stage 4 chronic kidney disease, or unspecified chronic kidney disease; E78.5 Hyperlipidemia, unspecified; Z85.038 Personal history of other malignant neoplasm of large intestine; Z87.891 Personal history of nicotine dependence; N18.3 Chronic kidney disease, stage 3 (moderate); E66.9 Obesity, unspecified; Z68.32 Body mass index [BMI] 32.0-32.9, adult
CPT/HCPCS: 36415; 71045-TC-FY; 80053; 80061; 81003; 82550; 82553; 82962; 83036; 83721; 83735; 83880; 84443; 84484; 85025; 85610; 85730; 93005; 93010; 93306-TC; 93970-TC; 99283-25; J1644; J7030